=== PATIENT | male | born 1940 | race Caucasian/White ===

== ENCOUNTER 2017-06-07 08:54 | Inpatient (IN) | payer MEDICARE ==
[~2017-06-07] VITALS: Ht 172.7 cm; Wt 78.4 kg
[~2017-06-07 08:54] MED LIST: ALBU8.5H8 INH; ASCO500T8 PO; BUPIVACAINE/PF-EPI 0.25% 1:200K ONE; CALC1CAP8 PO; CLOB50FO TD; DOXE50CA PO; EPINEPHRINE 1 MG/ML, 1ML ONE; FLUT1DIS3 INH; GABA300C10 PO; HYDR25TA11 PO; LEFL20TA16 PO; LEVO75TA5 PO; LIDOCAINE/PF 0.5% ,50ML ONE; MULT-208 PO; OMEP-110 PO; OXYC-307 PO; TADA20TA PO; TAMS0.4C2 PO; TERA5CAP3 PO; THROMBIN 5,000 UNIT VIAL TP ONE; VANCOMYCIN 1,000 MG ONE; [UNRECOGNIZED DRUG - CODE] PO
[2017-06-07] MEDS ORDERED: LACTATED RINGERS 1,000 ML IV SCH (09:24)
[2017-06-07] MEDS ORDERED: LIDOCAINE 1%, 2ML SQ PRN (09:30)
[2017-06-07] MEDS ORDERED: PANT40TA5 PO (09:32)
[2017-06-07 09:47] VITALS: BP 136/76
[2017-06-07] MEDS ORDERED: CEFAZOLIN 1,000 MG ONE (11:28)
[2017-06-07] MEDS ORDERED: ROCURONIUM 10 MG/ML ONE (11:28)
[2017-06-07] MEDS ORDERED: FENTANYL PF 100 MCG/2ML ONE (11:28)
[2017-06-07] MEDS ORDERED: hydrALAzine 20 MG/ML, 1ML ONE (11:28)
[2017-06-07] MEDS ORDERED: PROPOFOL 10 MG/ML, 50ML ONE (11:28)
[2017-06-07] MEDS ORDERED: DEXAMETHASONE 4 MG/ML, 1ML ONE (11:28)
[2017-06-07] MEDS ORDERED: ONDANSETRON 2MG/ML, 2ML ONE (11:28)
[2017-06-07] MEDS ORDERED: SUCCINYLCHOLINE 20 MG/ML, 10ML ONE (11:28)
[2017-06-07] MEDS ORDERED: HYDROmorphone 1 MG/ML, 1ML ONE ×2 (11:28)
[2017-06-07] MEDS ORDERED: KETOROLAC 30 MG/1 ML ONE (11:28)
[2017-06-07] MEDS ORDERED: hydrALAzine 20 MG/ML, 1ML IV PRN ×2 (12:30)
[2017-06-07] MEDS ORDERED: OXYcodone 5 MG/5 ML ORAL.SOL UDC PO PRN ×2 (12:30)
[2017-06-07] MEDS ORDERED: LABETALOL 5MG/ML, 20ML IV PRN ×2 (12:30)
[2017-06-07] MEDS ORDERED: FENTANYL PF 100 MCG/2ML IV PRN ×2 (12:30)
[2017-06-07] MEDS ORDERED: ACETAMINOPHEN 325 MG TABLET PO PRN ×2 (12:30)
[2017-06-07] MEDS ORDERED: HYDROmorphone 1 MG/ML, 1ML IV PRN ×2 (12:30)
[2017-06-07] MEDS ORDERED: METOCLOPRAMIDE 5 MG/ML, 2ML IV PRN ×2 (12:30)
[2017-06-07] MEDS ORDERED: ONDANSETRON 2MG/ML, 2ML IVPush PRN ×2 (12:30)
[2017-06-07] MEDS ORDERED: ACETAMINOPHEN 650 MG/20.3 ML UDC ONE (15:15)
[2017-06-07 15:50] VITALS: BP 133/63
[2017-06-07] MEDS ORDERED: ONDANSETRON 2MG/ML, 2ML IV PRN (16:30)
[2017-06-07] MEDS ORDERED: BISACODYL 10 MG SUPP PR PRN (16:30)
[2017-06-07] MEDS ORDERED: HYDROcodone/APAP 10/325 MG TABLET PO PRN (16:30)
[2017-06-07] MEDS ORDERED: PROMETHAZINE 25 MG/ML, 1ML IM PRN (16:30)
[2017-06-07] MEDS ORDERED: ALBUTEROL SULFATE 2.5 MG/3 ML NPPB PRN (16:30)
[2017-06-07] MEDS ORDERED: DIPHENHYDRAMINE 50 MG/ML, 1ML IM PRN (16:30)
[2017-06-07] MEDS ORDERED: DIPHENHYDRAMINE 50 MG CAPSULE PO PRN (16:30)
[2017-06-07] MEDS ORDERED: MAGNESIUM HYDROXIDE 8%, 30ML UDC PO PRN (16:30)
[2017-06-07] MEDS ORDERED: DIPHENHYDRAMINE 50 MG/ML, 1ML IVPush PRN (16:30)
[2017-06-07] MEDS ORDERED: morphine SULFATE 10 MG/ML, 1ML IV PRN (17:30)
[2017-06-07] MEDS: PANTOPROZOLE 40MG TABLET PO SCH (17:40)
[2017-06-07] MEDS: CEFAZOLIN PMX 1GM/50ML 50 ML IVPB SCH (19:52)
[2017-06-07] MEDS: D5%-0.9% NACL+KCL 20MEQ 1,000 ML IV SCH (19:52)
[2017-06-07 20:13] VITALS: BP 138/66
[2017-06-07] MEDS: HYDROcodone/APAP 5/325 TABLET PO PRN (21:38)
[2017-06-07 23:55] VITALS: BP 124/60
[2017-06-08] MEDS: D5%-0.9% NACL+KCL 20MEQ 1,000 ML IV SCH ×3 (02:30→22:30)
[2017-06-08 02:50] VITALS: BP 138/71
[2017-06-08] MEDS: CEFAZOLIN PMX 1GM/50ML 50 ML IVPB SCH ×3 (03:10→20:51)
[2017-06-08] MEDS: HYDROcodone/APAP 5/325 TABLET PO PRN ×2 (03:10→07:23)
[2017-06-08] MEDS: LEVOTHYROXINE 75 MCG TABLET PO SCH (06:09)
[2017-06-08] MEDS: PANTOPROZOLE 40MG TABLET PO SCH ×2 (07:29→19:36)
[2017-06-08 07:48] VITALS: BP 182/74
[2017-06-08] MEDS: SENNA/DOCUSATE TABLET PO SCH (09:05)
[2017-06-08] MEDS: DOXEPIN 25 MG CAPSULE PO SCH (09:05)
[2017-06-08] MEDS: LEFLUNOMIDE 20 MG TABLET PO SCH (09:05)
[2017-06-08] MEDS: GABAPENTIN 300 MG CAPSULE PO SCH (09:05)
[2017-06-08] MEDS: FLUTICASONE/VILANTEROL 100-25MCG/INH INH SCH (09:05)
[2017-06-08] MEDS ORDERED: DEXAMETHASONE 4 MG TABLET PO ONE (11:00)
[2017-06-08] MEDS: METHOCARBAMOL 500 MG TABLET PO SCH ×2 (12:11→20:51)
[2017-06-08] MEDS: OXYcodone/APAP 10/325MG TABLET PO PRN ×3 (12:11→20:52)
[2017-06-08] MEDS: TERAZOSIN 5MG CAPSULE PO SCH (12:11)
[2017-06-08] MEDS: MAGNESIUM HYDROXIDE 8%, 30ML UDC PO SCH (12:11)
[2017-06-08] MEDS: TAMSULOSIN 0.4 MG CAP.ER.24H PO SCH (12:11)
[2017-06-08 13:22] VITALS: BP 154/68
[2017-06-08 19:12] VITALS: BP 142/65
[2017-06-09] MEDS: OXYcodone/APAP 10/325MG TABLET PO PRN ×3 (01:17→09:56)
[2017-06-09 01:20] VITALS: BP 136/71
[2017-06-09] MEDS: METHOCARBAMOL 500 MG TABLET PO SCH (04:05)
[2017-06-09] MEDS: CEFAZOLIN PMX 1GM/50ML 50 ML IVPB SCH (04:05)
[2017-06-09] MEDS: LEVOTHYROXINE 75 MCG TABLET PO SCH (05:27)
[2017-06-09 07:36] VITALS: BP 145/70
[2017-06-09] MEDS: TERAZOSIN 5MG CAPSULE PO SCH (08:02)
[2017-06-09] MEDS: SENNA/DOCUSATE TABLET PO SCH (08:02)
[2017-06-09] MEDS: PANTOPROZOLE 40MG TABLET PO SCH (08:02)
[2017-06-09] MEDS: LEFLUNOMIDE 20 MG TABLET PO SCH (08:03)
[2017-06-09] MEDS: GABAPENTIN 300 MG CAPSULE PO SCH (08:03)
[2017-06-09] MEDS: MAGNESIUM HYDROXIDE 8%, 30ML UDC PO SCH (08:03)
[2017-06-09] MEDS: FLUTICASONE/VILANTEROL 100-25MCG/INH INH SCH (08:04)
[2017-06-09] MEDS: D5%-0.9% NACL+KCL 20MEQ 1,000 ML IV SCH (08:30)
[2017-06-09] MEDS: DOXEPIN 25 MG CAPSULE PO SCH (09:00)
[2017-06-09] MEDS: TAMSULOSIN 0.4 MG CAP.ER.24H PO SCH (09:00)
[2017-06-09] MEDS ORDERED: OXYC-307 PO (11:10)
[2017-06-09] MEDS ORDERED: METH500T97 PO (11:11)
[2017-06-09] MEDS ORDERED: CEPH-368 PO (11:12)
== END 2017-06-09 11:40 | disposition home or self-care (01) | DRG 472 ==
LOC: ORIP 08:54 → 4NOR 15:46 → DCLOUNGE 06-09 10:52
PROVIDERS: ADMIT Orthopaedic Surgery Orthopaedic Surgery of the Spine; ATTEND Orthopaedic Surgery Orthopaedic Surgery of the Spine
PROC: 4A1004G Monitoring of Central Nervous Electrical Activity, Intraoperative, Open Approach (ICD-10-PCS; 2017-06-07)
PROC: 0RG1071 Fusion of Cervical Vertebral Joint with Autologous Tissue Substitute, Posterior Approach, Posterior Column, Open Approach (ICD-10-PCS; principal; 2017-06-07 11:00)
DX: M48.02 Spinal stenosis, cervical region (principal); G95.9 Disease of spinal cord, unspecified; M06.9 Rheumatoid arthritis, unspecified; J44.9 Chronic obstructive pulmonary disease, unspecified; N40.0 Benign prostatic hyperplasia without lower urinary tract symptoms; I10 Essential (primary) hypertension
CPT/HCPCS: 72040; 95938; 95941; C1713; J0171; J0690; J1100; J1170; J1885; J2001; J2405; J2704; J3010; J3370; J0330; J0360; J3480; J7120; Q0177

== ENCOUNTER → 2018-09-26 | Outpatient (CLI) | payer MEDICARE ==
[~2018-09-26] MED LIST changes: -BUPIVACAINE/PF-EPI 0.25% 1:200K ONE; +CEPH-368 PO; -EPINEPHRINE 1 MG/ML, 1ML ONE; -LIDOCAINE/PF 0.5% ,50ML ONE; +METH500T97 PO; +PANT40TA5 PO; -THROMBIN 5,000 UNIT VIAL TP ONE; -VANCOMYCIN 1,000 MG ONE
== END | disposition home or self-care (01) ==
LOC: CFH 09:56
PROVIDERS: ATTEND Internal Medicine
DX: Z12.2 Encounter for screening for malignant neoplasm of respiratory organs (principal); K44.9 Diaphragmatic hernia without obstruction or gangrene; I77.819 Aortic ectasia, unspecified site; Z87.891 Personal history of nicotine dependence
CPT/HCPCS: G0297

== ENCOUNTER → 2018-11-23 | Outpatient (CLI) | payer MEDICARE ==
[2018-11-23 15:02] LABS: CHLORIDE 106 mmol/L (98-107)
[2018-11-23 15:23] LABS: ANION GAP 7 mmol/L (5-15); CALCIUM 9.3 mg/dL (8.5-10.1); CREATININE 1.06 mg/dL (0.7-1.3)
== END | disposition home or self-care (01) ==
LOC: CFH 09:00
PROVIDERS: ATTEND Student in an Organized Health Care Education/Training Program
DX: N31.2 Flaccid neuropathic bladder, not elsewhere classified (principal)
CPT/HCPCS: 36415; 76770; 80048

== ENCOUNTER → 2019-10-01 | Outpatient (CLI) | payer MEDICARE ==
[~2019-10-01] MED LIST changes: +HYDR-826 PO; -HYDR25TA11 PO
== END | disposition home or self-care (01) ==
LOC: CFH 08:58
PROVIDERS: ATTEND Internal Medicine
DX: I77.810 Thoracic aortic ectasia (principal); R91.8 Other nonspecific abnormal finding of lung field; Z72.0 Tobacco use; Z87.09 Personal history of other diseases of the respiratory system; Z87.75 Personal history of (corrected) congenital malformations of respiratory system
CPT/HCPCS: 71250

== ENCOUNTER 2021-03-20 07:46 | Outpatient (CLI) | payer MEDICARE ==
[~2021-03-20 07:46] MED LIST changes: +ASPI81TA45 PO; +ATOR-2 PO; +CARV6.2512 PO; +FURO20TA3 PO; +LISI5TAB7 PO; -OXYC-307 PO; +OXYC-501 PO; -PANT40TA5 PO; +PANT40TA6 PO; +SPIR25TA PO; +TICA90TA PO
== END 2021-03-20 23:59 | disposition home or self-care (01) ==
LOC: CFH 07:46
PROVIDERS: ATTEND Internal Medicine Cardiovascular Disease
DX: I08.8 Other rheumatic multiple valve diseases (principal); R91.8 Other nonspecific abnormal finding of lung field; I22.1 Subsequent ST elevation (STEMI) myocardial infarction of inferior wall; J44.0 Chronic obstructive pulmonary disease with (acute) lower respiratory infection; J98.4 Other disorders of lung
CPT/HCPCS: 71250; 93306

== ENCOUNTER 2021-03-21 09:26 | Outpatient (CLI) | payer MEDICARE ==
[~2021-03-21 09:26] MED LIST changes: +OXYC-380 PO; -OXYC-501 PO
[2021-03-21 10:16] LABS: ALBUMIN 3.7 g/dL (3.4-5.0); CALCIUM 9.1 mg/dL (8.5-10.1); CHLORIDE 106 mmol/L (98-107)
[2021-03-21 10:28] LABS: ALANINE AMINOTRANSFERASE 24 U/L (12-78); ALKALINE PHOSPHATASE 89 U/L (45-117); ANION GAP 6 mmol/L (5-15); BILIRUBIN,TOTAL 0.7 mg/dL (0.2-1.0); CHOL/HDL RATIO 3.2; CHOLESTEROL, TOTAL 89 mg/dL (140-239); CREATININE 1.26 mg/dL (0.7-1.3); HDL CHOL % 31 % (26-37); HDL CHOLESTEROL (DIRECT) 28 mg/dL (40-60); LDL CHOLESTEROL,CALCULATED 40 mg/dL (54-169); LDL/HDL RATIO 1.4 (0.5-3.0); TOTAL PROTEIN 8.4 g/dL (6.4-8.2); TRIGLYCERIDES 107 mg/dL (50-200); VLDL CHOLESTEROL 21 mg/dL (0-25)
== END 2021-03-21 23:59 | disposition home or self-care (01) ==
LOC: CFH 09:26
PROVIDERS: ATTEND Internal Medicine
DX: Z00.00 Encounter for general adult medical examination without abnormal findings (principal); E78.2 Mixed hyperlipidemia; I22.1 Subsequent ST elevation (STEMI) myocardial infarction of inferior wall; Z98.61 Coronary angioplasty status; Z12.11 Encounter for screening for malignant neoplasm of colon; I25.10 Atherosclerotic heart disease of native coronary artery without angina pectoris; G62.9 Polyneuropathy, unspecified; J44.0 Chronic obstructive pulmonary disease with (acute) lower respiratory infection; I10 Essential (primary) hypertension; M06.9 Rheumatoid arthritis, unspecified; K21.9 Gastro-esophageal reflux disease without esophagitis; E03.9 Hypothyroidism, unspecified; J45.998 Other asthma; G47.09 Other insomnia; K46.9 Unspecified abdominal hernia without obstruction or gangrene; N40.0 Benign prostatic hyperplasia without lower urinary tract symptoms; F52.21 Male erectile disorder; L29.9 Pruritus, unspecified; D64.9 Anemia, unspecified; G25.81 Restless legs syndrome; N28.89 Other specified disorders of kidney and ureter; M48.062 Spinal stenosis, lumbar region with neurogenic claudication; Z72.0 Tobacco use; Z23 Encounter for immunization
CPT/HCPCS: 36415; 80053; 80061; 84443